=== PATIENT | male | born 1975 | race Caucasian/White ===

== ENCOUNTER 2017-11-07 18:10 | Emergency (ER) | payer MEDICAID ==
[~2017-11-07] VITALS: Ht 175.3 cm; Wt 109.1 kg
[~2017-11-07 18:10] MED LIST: ALPR1TAB2 PO; ALPR2TAB2 PO
[2017-11-07 18:23] VITALS: BP 146/101
[2017-11-07] MEDS ORDERED: HYDR-3686 PO (20:38)
== END 2017-11-07 20:55 | disposition left against medical advice (07) ==
LOC: ER 18:10
DX: F41.9 Anxiety disorder, unspecified (principal); I10 Essential (primary) hypertension; Z76.0 Encounter for issue of repeat prescription; Z88.0 Allergy status to penicillin; Z79.899 Other long term (current) drug therapy
CPT/HCPCS: 99284